=== PATIENT | female | born 1950 | race Caucasian/White ===

== ENCOUNTER → 2017-02-23 | Outpatient (CLI) | payer MEDICARE ==
[2017-02-23 15:11] LABS: CH 30.5; CHCM 31.7; HDW 2.07; HGB 14.3 gm/dL (11.4-16.0); MCH 30.7 pg (25.0-35.0); MCHC 31.8 g/dL (31.0-37.0); MCV 96.7 fL (80.0-100.0); Mean Platelet Volume 7.3; RBC 4.65 m/uL (3.80-5.40); RDW 12.4 % (11.5-15.5); WBC 5.6 k/uL (3.8-10.6)
[2017-02-23 15:20] LABS: ALT 22 U/L (9-52); AST 19 U/L (14-36); Alkaline Phosphatase 77 U/L (38-126); Anion Gap 12 mmol/L; Blood Urea Nitrogen 18 mg/dL (7-17); Calcium 9.7 mg/dL (8.4-10.2); Carbon Dioxide 27 mmol/L (22-30); Chloride 105 mmol/L (98-107); Cholesterol 208 mg/dL (<200); Creatine Kinase 47 U/L (30-135); Glucose 81 mg/dL (74-99); HDL Cholesterol 91 mg/dL (40-60); Non-African American GFR(MDRD) >60 (>60 ml/min/1.73 sqM); Potassium 4.4 mmol/L (3.5-5.1); Sodium 144 mmol/L (137-145); Total Bilirubin 0.7 mg/dL (0.2-1.3); Total Protein 7.5 g/dL (6.3-8.2); Triglycerides 92 mg/dL (<150)
== END | disposition home or self-care (01) ==
LOC: LABWHC1 13:54
PROVIDERS: ATTEND Family Medicine
DX: R07.9 Chest pain, unspecified (principal)
CPT/HCPCS: 36415; 80053; 80061; 82550; 84439; 84443; 84481; 85027

== ENCOUNTER → 2017-02-25 | Outpatient (CLI) | payer MEDICARE ==
--- NOTE | 2017-02-25 11:56 | EST ---
DATE OF SERVICE: 02/25/2017 AGE: 66Y SEX: F HT: 5'6" WT: 165 lbs. Protocol Daren: X Other: Cardiolite Stage: II Dur. of Exercise: 7 minutes *Heart Rate Blood Pressure *Rest: 62 Rest: 140/88 * *Max. Achieved: 142 Maximum BP: 124/97 85% PMHR: 132 100% PMHR: 155 *METS: 8.5 INDICATIONS: Chest pain. MEDICATIONS: Mrs. Martinez is a 66-year-old female with history of chest pains and smoking, being evaluated for cardiac status. Baseline EKG showed sinus rhythm with normal VA interval and QRS duration. Blood pressure at rest is 140/88, pulse rate of 62. Patient walked on the Daren protocol for about 7 minutes, achieving a maximum heart rate of 142 with blood pressure 124/97. EKGs taken during and after exercise did not reveal any changes to suggest ischemia. Occasional PVCs were noted. Mild J-point depression with upsloping ST segments are noted, which are not diagnostic for ischemia. FINAL IMPRESSION: 1. Negative stress test. 2. Patient did not experience any chest pain. 3. No arrhythmias were detected. 4. Report on the nuclear images to be given by the radiologist.
--- NOTE | 2017-02-25 12:38 | NM ---
EXAMINATION TYPE: NM stress cardiolite complete DATE OF EXAM: 02/25/2017 11:55 AM COMPARISON: NONE HISTORY: 66-year-old female with chest pain TECHNIQUE: After the intravenous administration of 10.49 mCi Tc 99m Sestamibi - Rest images obtained 45 minutes post injection. The patient exercised using a REAGAN protocol and 1 minute prior to peak exercise was injected with 26.1 mCi Tc 99m Sestamibi - Stress images obtained 13 minutes post inject ion. FINDINGS: Targeted heart rate was achieved during performance of the study. Review of stress and rest SPECT marge ges demonstrates no distinct perfusion abnormality. Gated analysis shows normal wall motion with an estimated left ventricular ejection fraction of 67 %. TID is calculated at 0.96, within normal limits . Polar maps are normal. During stress, PVCs were noted by the technologist. IMPRESSION: No scintigraphic evidence for reversible ischemia
== END | disposition home or self-care (01) ==
LOC: RADNMMAIN 09:14
PROVIDERS: ATTEND Family Medicine
DX: R07.9 Chest pain, unspecified (principal)
CPT/HCPCS: 93017; 78452; A9500

== ENCOUNTER → 2018-05-03 | Outpatient (CLI) | payer MEDICARE ==
--- NOTE | 2018-05-03 22:57 | MR ---
EXAMINATION TYPE: MR brain/cspine wo/w DATE OF EXAM: 05/03/2018 COMPARISON: None at this institute in PACS system HISTORY: Multiple sclerosis with imbalance and ataxia per order. Weakness into right leg. TECHNIQUE: Multiplanar, multisequence images of the cervical spine, brain, and brainstem are all performed witho ut and with IV contrast, utilizing 7.5 mL intravenous Gadavist gadolinium contrast is administered in travenously. Demyelinating disease protocol with additional Sagittal Flair sequence performed of the brain and brainstem and PD sagittal sequence of cervical spine all acquired. FINDINGS: BRAIN: T2 Lesions Present : Yes Approximate Number of Lesions: Approximately 15 scattered small lesions Locations Identified : Scattered lesions, no infratentorial involvement identified Size of Reference Lesion(s): 1. 0.5 cm x 0.3 cm x 0.6 cm on axial image 21 and sagittal image 10 posterior left frontal periventr icular lesion at level of han radiata Enhancing Lesion(s) Present: No T1 Hypointense Lesion(s) Present: Yes Change from Prior: N/A Diffusion weighted images demonstrate no evidence of a recent infarct or other diffusion abnormality. There is no worrisome extra-axial fluid collection. There is ventricular and sulcal prominence cons istent with mild diffuse age-related cerebral atrophy. Midline structures demonstrate normal morphology. The craniocervical junction appears within normal limits. Post contrast images demonstrate no abnormal enhancement. The dural venous sinuses appear pa tent. The visualized sinuses are clear and the globes are intact. IMPRESSION: Mild age-related diffuse cerebral atrophy and mild to borderline moderate nonspecific white matter changes. No enhancing lesions are evident. C-SPINE: FINDINGS: Coronal images show dextroconvex scoliotic curvature centered in the mid cervical spine Sag ittal images of the cervical spine show the craniocervical junction to appear within normal limits. The cervical and upper thoracic spinal cord is normal in course, caliber, and signal. The vertebra l body heights are normal. There is multilevel mild to moderate disc space narrowing with posterior d isc herniations effacing anterior thecal sac and nearly all levels with relative sparing of C2-C3 and C7-T1 levels on sagittal images. There is heterogeneity of bone marrow signal intensity with large h emangioma involving the T3 vertebra. No suspicious enhancement is identified. Axial images at C2-C3 level are felt within normal limits. Axial images at C3-C4 level show broad-based posterior disc protrusion effacing anterior thecal sac a nd causing moderate right-sided neural foraminal narrowing. There is mild left-sided neural foraminal narrowing seen. Axial images at C4-C5 level show posterior spur disc complex effacing anterior thecal sac up to ventr al surface of spinal cord and causing [id number] bilateral neural foraminal narrowing. Axial images at C5-C6 level show broad-based posterior disc protrusion effacing anterior thecal sac a nd causing moderate to advanced bilateral neural foraminal narrowing. Axial images at C6-C7 level show broad-based posterior disc protrusion effacing anterior thecal sac a nd causing advanced left and moderate to advanced right-sided neural foraminal narrowing. Axial images at C7-T1 level are felt within normal limits. IMPRESSION: No evidence of demyelinating disease involvement in the cervical spinal cord. Scoliosis a nd multilevel degenerative changes as detailed above.
== END | disposition home or self-care (01) ==
LOC: RADMRIMAIN 19:30
PROVIDERS: ATTEND Psychiatry & Neurology Neurology
DX: G31.1 Senile degeneration of brain, not elsewhere classified (principal); R90.82 White matter disease, unspecified; M47.812 Spondylosis without myelopathy or radiculopathy, cervical region; M41.9 Scoliosis, unspecified
CPT/HCPCS: 70553; 72156; A9581

== ENCOUNTER → 2018-06-15 | Outpatient (CLI) | payer MEDICARE ==
--- NOTE | 2018-06-15 16:27 | BD ---
EXAMINATION TYPE: Axial Bone Density DATE OF EXAM: 06/15/2018 COMPARISON: NONE CLINICAL HISTORY: Height: 65.5 Weight: 170 FRAX RISK QUESTIONS: Alcohol (3 or more units per day): no Family History (Parent hip fracture): no Glucocorticoids (More than 3mos): inhaler infrequently, as needed; seasonal asthma (Ex: prednisone, prednisolone, methylprednisolone, dexamethasone, and hydrocortisone). History of Fracture in Adulthood: toes Secondary Osteoporosis: 1. Type 1 Diabetes: no 2. Hyperthyroidism: unsure 3. Menopause before 45: no 4. Malnutrition: no 5. Chronic liver disease: no Rheumatoid Arthritis: no Current Tobacco Use: no RISK FACTORS HISTORY OF: Family History of Osteoporosis: no Active: yes Diet low in dairy products/other sources of calcium: no Postmenopausal woman: yes Take estrogen and/or progesterone medications: no Lost more than 2 inches in height since high school: no Frequent falls: no Poor Health: no Hyperparathyroidism: no Adrenal Insufficiency: no MEDICATIONS: Prednisone or other steroids: infrequently, as needed; seasonal allergy only Thyroid Medications: yes Which medication: Levothyroxine How Long: at least 15 years Osteoporosis Medications: no Additional Medications: Additional History: knee replacement EXAM MEASUREMENTS: Bone mineral densitometry was performed using the [employer]. Bone mineral density as measured about the Lumbar spine is: ----- L1-L4(G/cm2): 1.113 T Score Values are as follows: ----- L2: -1.4 ----- L3: -1.1 ----- L4: 0.0 ----- L1-L4: -0.6 Bone mineral density BASELINE Bone mineral density about the R hip (g/cm2): 0.834 Bone mineral density about the L hip (g/cm2): 0.836 T Score values are as follows: -----R Neck: -1.5 -----L Neck: -1.5 -----R Total: -1.0 -----L Total: -0.9 Bone mineral density BASELINE IMPRESSION: Osteopenia (T Score between -2.5 and -1). There is slightly increased risk of fracture and the patient may be considered for treatment. Re-Screen 2-5 years. NOTE: T-SCORE=SD OF THE YOUNG ADULT MEAN.
--- NOTE | 2018-06-16 14:19 | MM ---
Reason for exam: screening (asymptomatic). Last mammogram was performed 1 year and 1 month ago. History: Patient is postmenopausal and history of other cancer. Took estrogen for 7 months. Took progesterone for 7 months. Physical Findings: A clinical breast exam by your physician is recommended on an annual basis and results should be correlated with mammographic findings. MG 3D Screening Mammo W/Cad Bilateral CC and MLO view(s) were taken. Prior study comparison: May 16, 2017, mammogram, performed at [facility]. April 15, 2016, mammogram, performed at [facility]. The breast tissue is heterogeneously dense. This may lower the sensitivity of mammography. Focal asymmetry 7mm left CC view only (). This finding is changed when compared with previous exams. ASSESSMENT: Incomplete: need additional imaging evaluation, BI-RAD 0 RECOMMENDATION: Special view mammogram of the left breast. If lesion persists on supplemental views, image directed ultrasound is recommended. [facility] will attempt to contact patient to return for supplemental views and ultrasound if indicated.
== END | disposition home or self-care (01) ==
LOC: RADMAMWWP 12:28
PROVIDERS: ATTEND Family Medicine
DX: Z12.31 Encounter for screening mammogram for malignant neoplasm of breast (principal); M85.80 Other specified disorders of bone density and structure, unspecified site; Z78.0 Asymptomatic menopausal state
CPT/HCPCS: 77063; 77067; 77080

== ENCOUNTER → 2018-06-22 | Outpatient (CLI) | payer MEDICARE ==
--- NOTE | 2018-06-22 11:12 | MM ---
Reason for exam: additional evaluation requested from abnormal screening. Last mammogram was performed less than 1 month ago. History: Patient is postmenopausal and history of other cancer. Took estrogen for 7 months. Took progesterone for 7 months. Physical Findings: Nurse did not find any significant physical abnormalities on exam. MG 3D Work Up W/Cad LT Spot compression CC, spot compression MLO, and ML view(s) were taken of the left breast. Prior study comparison: June 15, 2018, bilateral MG 3d screening mammo w/cad. May 16, 2017, mammogram, performed at [facility]. The breast tissue is heterogeneously dense. This may lower the sensitivity of mammography. No distinct lesion persists on additional views. These results were verbally communicated with the patient and result sheet given to the patient on 06/22/18. ASSESSMENT: Negative, BI-RAD 1 RECOMMENDATION: Return to routine screening mammogram schedule for both breasts.
== END ==
LOC: RADMAMWWP 08:54
PROVIDERS: ATTEND Family Medicine
DX: R92.8 Other abnormal and inconclusive findings on diagnostic imaging of breast (principal)
CPT/HCPCS: 77065; G0279; 77061

== ENCOUNTER → 2019-04-19 | Outpatient (CLI) | payer MEDICARE ==
[2019-04-19 15:39] LABS: Protein, Total 6.2 g/dL (6.2-8.2)
[2019-04-19 22:17] LABS: Hemoglobin A1C 5.3 % (4.0-6.0)
[2019-04-20 12:18] LABS: Lyme IgG/IgM 0.06 Index
[2019-04-20 13:40] LABS: Albumin 3.94 g/dL (3.80-4.90)
[2019-04-20 15:21] LABS: ANA Pattern Homogeneous
== END | disposition home or self-care (01) ==
LOC: LABWHC1 11:26
PROVIDERS: ATTEND Psychiatry & Neurology Neurology
DX: G62.9 Polyneuropathy, unspecified (principal)
CPT/HCPCS: 36415; 82550; 82607; 82747; 83036; 84165; 84443; 85652; 86038; 86039; 86618

== ENCOUNTER → 2019-04-26 | Outpatient (CLI) | payer MEDICARE ==
--- NOTE | 2019-04-26 17:41 | MR ---
Thoracic spine MRI HISTORY: G 36, multiple sclerosis Multiplanar multisequence imaging through the thoracic spine No comparisons Thoracic vertebral bodies show preserved height and alignment. There is multilevel spondylosis with e ndplate discogenic marrow signal change. Multilevel loss of disc height signal at intervertebral leve ls compatible disc desiccation and degenerative disc disease. There is no significant foraminal encro achment or central canal stenosis. Foci of increased signal on T1 and T2-weighted sequences within mu ltiple vertebral bodies to exclude T3, T9, T8, T10 likely represent hemangiomas. Facet arthropathy ch anges are greatest at the lower thoracic level. Thoracic cord signal is maintained with the exception of some increased signal present within the T10-11 level on T2-weighted sequences, possibly proton d ensity sequences. There is underlying kyphosis. Ascending aorta is ectatic at approximately 3 cm. T10-11 there is a posterior disc herniation contacts the anterior thoracic cord. T9-10: There is a left lateral disc bulge causing anterolateral mass effect on the thecal sac. T8-9: Posterior broad-based disc bulge causes mild anterior mass effect on the thecal sac. T6-7: There is a right posterior paracentral disc herniation contacting the anterior thoracic cord an d the paracentral location. There may be a small sequestered fragment or bone spur extending posterio r to the T6 vertebral body. IMPRESSION: Degenerative disc disease, multilevel disc herniations greatest at T10-11. Suspect some a bnormal cord signal at this level. Facet arthropathy changes. Descending thoracic aortic ectasia. Add itional findings above.
== END | disposition home or self-care (01) ==
LOC: RADMRIMAIN 16:04
PROVIDERS: ATTEND Psychiatry & Neurology Neurology
DX: M51.24 Other intervertebral disc displacement, thoracic region (principal); M51.34 Other intervertebral disc degeneration, thoracic region; M46.94 Unspecified inflammatory spondylopathy, thoracic region; I77.810 Thoracic aortic ectasia
CPT/HCPCS: 72146

== ENCOUNTER → 2019-05-14 | Outpatient (CLI) | payer MEDICARE ==
--- NOTE | 2019-05-14 16:07 | MR ---
EXAMINATION TYPE: MR brain/cspine wo/w DATE OF EXAM: 05/14/2019 COMPARISON: MRI brain and cervical spine May 03, 2018 HISTORY: Multiple sclerosis / Right leg weakness TECHNIQUE: Multiplanar, multisequence images of the cervical spine, brain, and brainstem are all performed witho ut and with IV contrast, utilizing 7.5 mL intravenous Gadavist gadolinium contrast is administered in travenously. Demyelinating disease protocol with additional Sagittal Flair sequence performed of the brain and brainstem and PD sagittal sequences cervical spine all acquired. FINDINGS: BRAIN: T2 Lesions Present : Yes Approximate Number of Lesions: Approximately 15 scattered Locations Identified : Scattered small lesions redemonstrated Size of Reference Lesion(s): 1. There is stable 4 x 4 by 5 mm left posterior frontal coronal radiata lesion axial image 22 and sag ittal image 14 Enhancing Lesion(s) Present: No T1 Hypointense Lesion(s) Present: Yes Change from Prior: Stable Diffusion weighted images demonstrate no evidence of a recent infarct or other diffusion abnormality. There is diffuse ventricular and sulcal prominence redemonstrated Midline structures demonstrate no rmal morphology. The craniocervical junction appears within normal limits. Post contrast images dem onstrate no abnormal enhancement. The dural venous sinuses appear patent. The visualized sinuses are clear and the globes are intact. IMPRESSION: Stable mild diffuse cerebral atrophy and mild borderline moderate nonspecific white matte r changes. No new or enhancing lesions clearly seen. C-SPINE: FINDINGS: Coronal images redemonstrate levoconvex scoliotic curvature centered in the upper thoracic spine. Sagittal images of the cervical spine show the craniocervical junction to remain within normal limits. The cervical and upper thoracic spinal cord remains normal in course, caliber, and signal. Exaggerated cervical curvature redemonstrated on sagittal images. The vertebral body heights remain normal. There is persistent [id number] multilevel disc space narrowing with posterior spur dis c complexes efface the anterior thecal sac throughout the cervical spine extending into the thoracic spine. Hemangioma at T3 vertebral body level is redemonstrated. No suspicious enhancement is seen. Axial images at C2-C3 level remain within normal limits. Axial images at C3-C4 level redemonstrate broad-based posterior disc protrusion effacing anterior the leila sac and causing moderate right greater than left neural foraminal narrowing. No significant moody e from prior. Axial images at C4-C5 level show posterior spur disc complex effacing anterior thecal sac up to ventr al surface of spinal cord with uncovertebral facet arthropathy causing moderate bilateral neural fora savana narrowing. No significant change from prior. Axial images at C5-C6 level redemonstrate broad-based posterior disc protrusion effacing anterior the leila sac and causing moderate to advanced bilateral neural foraminal narrowing. No significant change from prior. Axial images at C6-C7 level show broad-based posterior disc protrusion effacing anterior thecal sac a nd causing moderate right greater than left neural foraminal narrowing. No significant change from pr ior. Axial images at C7-T1 level are felt within normal limits. IMPRESSION: No evidence of demyelinating disease involvement in the cervical spinal cord. Fairly stab le multilevel degenerative changes as detailed above.
== END | disposition home or self-care (01) ==
LOC: RADMRIMAIN 14:37
PROVIDERS: ATTEND Psychiatry & Neurology Neurology
DX: R53.1 Weakness (principal); G35 Multiple sclerosis
CPT/HCPCS: 70553; 72156; A9585

== ENCOUNTER → 2019-07-06 | Outpatient (CLI) | payer MEDICARE ==
--- NOTE | 2019-07-09 12:56 | MM ---
Reason for exam: screening (asymptomatic). Last mammogram was performed 1 year ago. History: Patient is postmenopausal and history of other cancer. Took estrogen for 7 months. Took progesterone for 7 months. Physical Findings: A clinical breast exam by your physician is recommended on an annual basis and results should be correlated with mammographic findings. MG 3D Screening Mammo W/Cad Bilateral CC and MLO view(s) were taken. Prior study comparison: June 22, 2018, left breast MG 3d work up w/cad LT. June 15, 2018, bilateral MG 3d screening mammo w/cad. The breast tissue is heterogeneously dense. This may lower the sensitivity of mammography. No suspicious abnormality. No significant changes when compared with prior studies. ASSESSMENT: Negative, BI-RAD 1 RECOMMENDATION: Routine screening mammogram of both breasts in 1 year.
== END | disposition home or self-care (01) ==
LOC: RADMAMWWP 14:30
PROVIDERS: ATTEND Family Medicine
DX: Z12.31 Encounter for screening mammogram for malignant neoplasm of breast (principal)
CPT/HCPCS: 77063; 77067

== ENCOUNTER → 2019-08-09 | Outpatient (CLI) | payer MEDICARE ==
--- NOTE | 2019-08-12 14:46 | MR ---
EXAMINATION TYPE: MR lumbar spine wo con DATE OF EXAM: 08/09/2019 COMPARISON: MR thoracic spine 04/26/2019 HISTORY: 68-year-old female with pain and spondylosis TECHNIQUE: Multiplanar, multisequence images of the lumbar spine were acquired. FINDINGS: Vertebral body heights are preserved. There is grade 1, nearly grade 2 anterolisthesis at L4-L5 secondary to severe hypertrophic facet arth ropathy. Mild degenerative disc disease throughout weight desiccated and mildly narrowed discs with bulging in multiple levels. Tiny posterior annular fissures at L3-L4 and L4-L5. Ligamentum flavum thickening lower lumbar spine. Conus medullaris is normal. No suspicious bone marrow replacement of their is mild heterogeneous marrow signal throughout. Posterior disc protrusion at T10-T11 abuts the ventral cord. There is some corresponding cortical vol ume loss at this level and some subtle increased signal is seen on MRI 04/26/2019. Mild overall narrow ing of the spinal canal. At T12-L1, L2 disc with minimal inferior foraminal narrowing on the right. No spinal canal stenosis. At L1-L2, no canal or foraminal stenosis. At L2-L3, minimal bulging disc. Changes result in minimal inferior foraminal narrowing on the right. No spinal canal stenosis. At L3-L4, minimal bulging disc with tiny posterior annular fissure. Ligamentum flavum thickening with hypertrophic facet arthropathy. Minimal inferior foraminal narrowing on both sides. There is circumf erential attenuation of the thecal sac without significant spinal canal stenosis. At L4-L5, severe hypertrophic facet arthropathy with ligamentum flavum thickening and grade 1, nearly grade 2 anterolisthesis with bulging disc. Changes result in a focal moderate to severe spinal canal stenosis with mild right greater than left neuroforaminal stenosis. At L5-S1, mild bulging disc with hypertrophic facet arthropathy. Disc material may abut the traversin g left S1 nerve root at this level. Changes also result in mild left neural foraminal stenosis. No prevertebral or paravertebral soft tissue abnormality. IMPRESSION: 1. Sqje-hr-klsczmoy multilevel degenerative disc disease. Severe hypertrophic facet arthropathy lower lumbar spine with ligamentum flavum thickening and grade 1, nearly grade 2 anterolisthesis at L4-L5. 2. Changes at L4-L5 result in a focal moderate to severe spinal canal stenosis with mild right greate r than left neuroforaminal stenosis. 3. Bulging disc at L5-S1 may abut the traversing left S1 nerve root. Mild left neuroforaminal stenosi s. 4. Posterior disc protrusion at T10-T11 as seen on MRI of the thoracic spine on 04/26/2019. There is m ild narrowing of the spinal canal at this level with disc abutting the ventral cord and the appearanc e of some chronic myelomalacia here.
== END | disposition home or self-care (01) ==
LOC: RADMRIMAIN 10:50
DX: M48.061 Spinal stenosis, lumbar region without neurogenic claudication (principal); M48.07 Spinal stenosis, lumbosacral region; M43.16 Spondylolisthesis, lumbar region; M51.36 Other intervertebral disc degeneration, lumbar region; M46.96 Unspecified inflammatory spondylopathy, lumbar region; G95.89 Other specified diseases of spinal cord
CPT/HCPCS: 72148

== ENCOUNTER 2020-05-02 13:20 | Emergency (ER) | payer MEDICARE ==
--- NOTE | 2020-05-02 14:31 | XR ---
EXAMINATION TYPE: XR ankle complete RT DATE OF EXAM: 05/02/2020 COMPARISON: NONE HISTORY: Pain FINDINGS: Three views of the ankle demonstrate the ankle mortise to be intact and symmetric. There is diffuse s oft tissue edema laterally with a mildly displaced fracture of the distal fibula. Large plantar calca bonita spur. Remaining osseous structures intact. IMPRESSION: 1. Displaced fibular distal fracture with extensive soft tissue edema.
--- NOTE | 2020-05-02 14:32 | XR ---
EXAMINATION TYPE: XR foot complete RT DATE OF EXAM: 05/02/2020 COMPARISON: NONE HISTORY: Pain TECHNIQUE: Three views are submitted. FINDINGS: The osseous structures are intact. There is no acute fracture or dislocation. Severe arthropathy o f the first MTP joint. Extensive soft tissue edema seen along the lateral margin of the ankle. Planta r calcaneal spur noted. Findings compatible with a mildly displaced fracture of the distal fibula. Re maining osseous structures intact. IMPRESSION: 1. Extensive soft tissue edema laterally with a mildly displaced fracture of the distal fibula. 2. Arthropathy of the first MTP joint.
[2020-05-02] MEDS ORDERED: ACET/COD 300 MG/30 MG STARTER PACK 6 TAB BTL PO STA (14:41)
--- NOTE | 2020-05-02 14:47 | ED ---
Lower Extremity Injury HPI - General Chief Complaint: Extremity Injury, Lower Stated Complaint: Sprain/broke rt ankle Time Seen by Provider: 05/02/20 14:07 Source: patient, RN notes reviewed, old records reviewed Mode of arrival: wheelchair Limitations: no limitations - History of Present Illness Initial Comments: 69 year old female presents today for R ankle pain and swelling after twisting it while golfing today. She reports no other injury. Denies head injury. Patient reports pain on lateral malleolus. - Related Data Previous Rx's Medication Instructions Recorded Acetaminophen with Codeine 1 tab PO Q6H PRN 3 Days #12 tab 05/02/20 [Tylenol w/codeine #3] Acetaminophen with Codeine 1 tab PO Q6H PRN 3 Days #12 tab 05/02/20 [Tylenol w/codeine #3] Allergies Allergy/AdvReac Type Severity Reaction Status Date / Time No Known Allergies Allergy Verified 05/02/20 14:00 Review of Systems ROS Statement: Those systems with pertinent positive or pertinent negative responses have been documented in the HPI. ROS Other: All systems not noted in ROS Statement are negative. Past Medical History Additional Past Medical History / Comment(s): spinal stenosis, possible MS History of Any Multi-Drug Resistant Organisms: None Reported Past Surgical History: Joint Replacement Additional Past Surgical History / Comment(s): right knee replacement Past Psychological History: No Psychological Hx Reported Smoking Status: Former smoker Past Alcohol Use History: Daily Past Drug Use History: None Reported General Exam - General Exam Comments Initial Comments: 69 year old female, no distress. Limitations: no limitations General appearance: alert, in no apparent distress Head exam: Present: atraumatic, normocephalic, normal inspection Eye exam: Present: normal appearance, PERRL, EOMI. Absent: scleral icterus, c onjunctival injection, periorbital swelling ENT exam: Present: normal exam, mucous membranes moist Neck exam: Present: normal inspection. Absent: tenderness, meningismus, lymphadenopathy Respiratory exam: Present: normal lung sounds bilaterally. Absent: respiratory distress, wheezes, rales, rhonchi, stridor Cardiovascular Exam: Present: regular rate, normal rhythm, normal heart sounds. Absent: systolic murmur, diastolic murmur, rubs, gallop, clicks GI/Abdominal exam: Present: soft, normal bowel sounds. Absent: distended, tenderness, guarding, rebound, rigid Right Lower Leg exam: Present: normal inspection, full ROM Ankle exam: Present: tenderness, swelling (lateral malleolus). Absent: normal inspection, full ROM Foot/Toe exam: Present: normal inspection, full ROM Neurovascular tendon exam: Present: no vascular compromise Back exam: Present: normal inspection Neurological exam: Present: alert, oriented X3, CN II-XII intact Psychiatric exam: Present: normal affect, normal mood Skin exam: Present: warm, dry, intact, normal color. Absent: rash Course Vital Signs 05/02/20 05/02/20 13:57 15:40 Temperature 98.9 F 98.0 F Pulse Rate 55 L 78 Respiratory 18 17 Rate Blood Pressure 148/82 138/74 O2 Sat by Pulse 99 98 Oximetry Procedures - Orthopedic Splinting/Casting Injury #1 Side: right Lower Extremity Injury Location: ankle Lower Extremity Immobilizer: posterior splint, stirrup splint, Marcelino wrap, synthetic pre-padded splint Other Orthopedic Equipment: walker Medical Decision Making - Medical Decision Making 69 year old female with R ankle pain and swelling after rolling it during golf today. Pt has tenderness and swelling on lateral malleolus. PAtient xray shows evidence of displaced fibular fracture. Patient placed in ankle stirrup and posterior splint and advised follow up with ortho this week. - Radiology Data Radiology results: report reviewed Excess excessive soft tissue edema laterally with a mildly displaced fracture of the distal fibula. Arthropathy within the first MTP joint. Displaced fibular distal fracture with extensive soft tissue edema and ankle x-ray. Disposition Clinical Impression: Fracture of distal fibula Disposition: HOME SELF-CARE Condition: Good Instructions (If sedation given, give patient instructions): Leg Fracture (ED) Additional Instructions: Patient is to rest, ice and elevate the leg. Patient needs to remain in splint until seen by orthopedic. Patient is to use crutches for ambulation. Prescriptions: Acetaminophen with Codeine [Tylenol w/codeine #3] 1 tab PO Q6H PRN 3 Days #12 tab PRN Reason: Pain Acetaminophen with Codeine [Tylenol w/codeine #3] 1 tab PO Q6H PRN 3 Days #12 tab PRN Reason: Pain Is patient prescribed a controlled substance at d/c from ED?: No Referrals: Ramírez Pitts MD [Primary Care Provider] - 1-2 days Alexander Bosch DO [Medical Doctor] - 1-2 days Time of Disposition: 14:42
[2020-05-02 15:42] VITALS: BP 138/74; PULSE 78; RESP 17; TEMP 98
== END 2020-05-02 15:42 | disposition home or self-care (01) ==
LOC: EC 13:20
DX: S82.831A Other fracture of upper and lower end of right fibula, initial encounter for closed fracture (principal); Z96.651 Presence of right artificial knee joint; Z87.891 Personal history of nicotine dependence; X50.1XXA Overexertion from prolonged static or awkward postures, initial encounter; Y93.53 Activity, golf; Y92.89 Other specified places as the place of occurrence of the external cause
CPT/HCPCS: 29515; 99284

== ENCOUNTER → 2020-07-07 | Outpatient (CLI) | payer MEDICARE ==
--- NOTE | 2020-07-07 14:17 | BD ---
EXAMINATION TYPE: Axial Bone Density DATE OF EXAM: 07/07/2020 COMPARISON: 06.15.2018 CLINICAL HISTORY: 69 YR OLD FEMALE.....ICD-10 CODE: V49.81 , Z78.0 MENOPAUSAL SYMPTOME Height: 64.5 Weight: 177 FRAX RISK QUESTIONS: Glucocorticoids (More than 3mos): YES (Ex: prednisone, prednisolone, methylprednisolone, dexamethasone, and hydrocortisone). History of Fracture in Adulthood: YES RISK FACTORS HISTORY OF: RT ANKLE APRIL 2020, AND FINGERS AND TOES ADULT Postmenopausal woman: YES, AT AGE 50 Lost more than 2 inches in height since high school: YES Hyperparathyroidism: NO Adrenal Insufficiency: NO MEDICATIONS: Prednisone or other steroids: SEASONAL ASTHMA, YRLY Thyroid Medications: YES SYNTHROID FOR ABOUT 15+ yrs.. Additional Medications: BP MEDS, PAIN MEDS, NSAIDS Additional History: SPINAL STENOSIS EXAM MEASUREMENTS: Bone mineral densitometry was performed using the [employer] System. Bone mineral density as measured about the Lumbar spine is: ----- L1-L4(G/cm2): 1.099 T Score Values are as follows: ----- L1: 0.0 ----- L2: -2.0 ----- L3: -0.7 ----- L4: 0.3 ----- L1-L4: -0.7 Bone mineral density has: Decreased -0.9% since study of: 06.15.2018 Bone mineral density about the R hip (g/cm2): 0.866 Bone mineral density about the L hip (g/cm2): 0.910 T Score values are as follows: -----R Neck: -1.8 -----L Neck: -1.9 -----R Total: -1.1 -----L Total: -0.8 Bone mineral density has: Increased 0.6% since study of: 06.15.2018 FRAX%s: THERE IS A 26.6% CHANCE FOR A MAJOR OSTEOPOROTIC FX AND A 5.2% FOR HIP......PROBABILITY FOR FX IN 10 YRS TIME IMPRESSION: Osteopenia (T Score between -2.5 and -1). There is slightly increased risk of fracture and the patient may be considered for treatment. Re-Screen 2-5 years. NOTE: T-SCORE=SD OF THE YOUNG ADULT MEAN.
--- NOTE | 2020-07-08 08:37 | MM ---
Reason for exam: screening (asymptomatic). Last mammogram was performed 1 year ago. History: Patient is postmenopausal and history of other cancer. Took estrogen for 7 months. Took progesterone for 7 months. Physical Findings: A clinical breast exam by your physician is recommended on an annual basis and results should be correlated with mammographic findings. MG 3D Screening Mammo W/Cad Bilateral CC and MLO view(s) were taken. Prior study comparison: July 06, 2019, bilateral MG 3d screening mammo w/cad. June 22, 2018, left breast MG 3d work up w/cad LT. The breast tissue is heterogeneously dense. This may lower the sensitivity of mammography. There is chronic nodularity in the right breast. No significant changes when compared with prior studies. ASSESSMENT: Benign, BI-RAD 2 RECOMMENDATION: Routine screening mammogram of both breasts in 1 year.
== END | disposition home or self-care (01) ==
LOC: RADMAMWWP 09:20
PROVIDERS: ATTEND Family Medicine
DX: Z12.31 Encounter for screening mammogram for malignant neoplasm of breast (principal); M85.80 Other specified disorders of bone density and structure, unspecified site; Z78.0 Asymptomatic menopausal state
CPT/HCPCS: 77063; 77067; 77080

== ENCOUNTER → 2021-03-28 | Outpatient (CLI) | payer MEDICARE ==
--- NOTE | 2021-03-28 11:36 | MR ---
EXAMINATION TYPE: MR brain/cspine wo/w DATE OF EXAM: 03/28/2021 COMPARISON: Prior MRI brain and cervical spine 2019 and 2018 HISTORY: Prior on synapse, hx of MS, weakness in right leg TECHNIQUE: Multiplanar, multisequence images of the brain and brainstem along with cervical spine are all perfor med without and with IV contrast, utilizing 8ml mL intravenous Gadavist . Demyelinating disease adija col. BRAIN: T2 Lesions Present : Yes Approximate Number of Lesions: Approximately 15 -20 scattered Locations Identified : Scattered Size of Reference Lesion(s): 1. There is stable 4 x 4 by 6 mm left posterior frontal periventricular coronal radiata lesion axial image 21 and sagittal image 13 current study Enhancing Lesion(s) Present: No T1 Hypointense Lesion(s) Present: Yes Change from Prior: Stable Diffusion weighted images demonstrate no evidence of a recent infarct or other diffusion abnormality. There is mild diffuse ventricular and sulcal prominence redemonstrated redemonstrated. Midline structures demonstrate normal morphology. The craniocervical junction appears within normal limits. Post contrast images demonstrate no abnormal enhancement. The dural venous sinuses appear pa tent. The visualized sinuses are clear and the globes are intact. IMPRESSION: Stable mild diffuse cerebral atrophy and mild to moderate nonspecific white matter change s. No new or enhancing lesions clearly seen. No significant change from prior. C-SPINE: FINDINGS: Coronal images redemonstrate levoconvex scoliotic curvature centered in the upper thoracic spine. Sagittal images of the cervical spine show the craniocervical junction to remain within normal limits. The cervical and upper thoracic spinal cord remains normal in caliber and signal. Exaggerat ed cervical curvature redemonstrated on sagittal images. The vertebral body heights remain normal. There is persistent [id number]-[id number] multilevel disc space narrowing with posterior spur disc complex es efface the anterior thecal sac throughout the cervical spine extending into the thoracic spine. He mangioma at T3 vertebral body level is redemonstrated. No suspicious enhancement is seen. Axial images at C2-C3 level remain within normal limits. Axial images at C3-C4 level redemonstrate broad-based posterior disc protrusion effacing anterior the leila sac and causing moderate right greater than left neural foraminal narrowing. No significant moody e from prior. Axial images at C4-C5 level show posterior spur disc complex effacing anterior thecal sac up to ventr al surface of spinal cord with uncovertebral facet arthropathy causing moderate bilateral neural fora savana narrowing. No significant change from prior. Axial images at C5-C6 level redemonstrate broad-based posterior disc protrusion effacing anterior the leila sac and causing moderate to advanced bilateral neural foraminal narrowing. No significant change from prior. Axial images at C6-C7 level show broad-based posterior disc protrusion effacing anterior thecal sac a nd ventral surface of the spinal cord and causing moderate to advanced bilateral neural foraminal patrizia rowing. No significant change from prior. Axial images at C7-T1 level remain within normal limits. IMPRESSION: No evidence of demyelinating disease involvement in the cervical spinal cord. Fairly stab le multilevel degenerative changes as detailed above
== END | disposition home or self-care (01) ==
LOC: RADMRIMAIN 10:10
PROVIDERS: ATTEND Psychiatry & Neurology Neurology
DX: G31.9 Degenerative disease of nervous system, unspecified (principal); R90.82 White matter disease, unspecified; M47.812 Spondylosis without myelopathy or radiculopathy, cervical region
CPT/HCPCS: 70553; 72156; A9585

== ENCOUNTER → 2021-03-31 | Outpatient (CLI) | payer MEDICARE ==
--- NOTE | 2021-03-31 13:20 | MR ---
EXAMINATION TYPE: MR thoracic spine wo/w con DATE OF EXAM: 03/31/2021 COMPARISON: 04/26/2019 HISTORY: Leg weakness, MS CONTRAST: Standard multiplanar, multisequence MRI thoracic spine departmental protocol utilizing 7.5 mL intrave nous Gadavist gadolinium contrast. FINDINGS: Vertebral body heights are preserved. Multiple hemangiomas are noted. Multilevel disc desiccation is seen. At T6-7, there is a disc osteophyte complex with mild central canal stenosis, slightly worsened since the prior exam. At T9-10, there is a disc bulge with mass effect upon the spinal cord and edema within the spinal cor d at this level, similar to the prior exam No definite abnormal enhancement. The paravertebral soft tissues are unremarkable. IMPRESSION: At T6-7, there is a disc osteophyte complex with mild central canal stenosis, slightly worsened since the prior exam. At T9-10, there is a disc bulge with mass effect upon the spinal cord and edema within the spinal cor d at this level, similar to the prior exam No definite abnormal enhancement.
== END | disposition home or self-care (01) ==
LOC: RADMRIMAIN 11:39
PROVIDERS: ATTEND Psychiatry & Neurology Neurology
DX: M25.78 Osteophyte, vertebrae (principal); M48.04 Spinal stenosis, thoracic region; M51.24 Other intervertebral disc displacement, thoracic region
CPT/HCPCS: 72157; A9585

== ENCOUNTER → 2021-08-06 | Outpatient (CLI) | payer MEDICARE ==
--- NOTE | 2021-08-10 09:57 | MM ---
Reason for exam: screening (asymptomatic). Last mammogram was performed 1 year and 1 month ago. History: Patient is postmenopausal and history of other cancer. Took hormonal contraceptives for 10 years. Took estrogen for 7 months. Took progesterone for 7 months. Physical Findings: A clinical breast exam by your physician is recommended on an annual basis and results should be correlated with mammographic findings. MG 3D Screening Mammo W/Cad Bilateral CC and MLO view(s) were taken. Prior study comparison: July 07, 2020, bilateral MG 3d screening mammo w/cad. July 06, 2019, bilateral MG 3d screening mammo w/cad. The breast tissue is heterogeneously dense. This may lower the sensitivity of mammography. There is chronic nodularity in the right breast. No significant changes when compared with prior studies. ASSESSMENT: Benign, BI-RAD 2 RECOMMENDATION: Routine screening mammogram of both breasts in 1 year.
== END | disposition home or self-care (01) ==
LOC: RADMAMWWP 15:38
PROVIDERS: ATTEND Family Medicine
DX: Z12.31 Encounter for screening mammogram for malignant neoplasm of breast (principal); Z85.89 Personal history of malignant neoplasm of other organs and systems
CPT/HCPCS: 77063; 77067

== ENCOUNTER 2021-08-11 09:11 | Day surgery (SDC) | payer MEDICARE ==
[2021-08-07 17:00] VITALS: BMI 27.4
[2021-08-11 09:44] VITALS: TEMP 97.2
[2021-08-11] MEDS: LACTATED RINGERS 1,000 ML IV SCH ×2 (09:54→10:28)
[2021-08-11] MEDS ORDERED: LIDOCAINE 1% (10MG/ML) FOR IV START INTRADERMA ONE (09:55)
[2021-08-11] MEDS ORDERED: PROPOFOL 10 MG/ML 20 ML VIAL IV ONE (10:30)
--- NOTE | 2021-08-11 10:32 | P.GSHP ---
History of Present Illness H&P Date: 08/11/21 Chief Complaint: Colon cancer screening 70-year-old female here today for colonoscopy. Patient has a history of chronic constipation without new complaints. No family history of colon cancer. Last colonoscopy 7 years ago or so. Thinks she may have had polyps before. Past Medical History Past Medical History: Asthma Additional Past Medical History / Comment(s): spinal stenosis, MS-trigeminal nerve pain,balance is off,seasonal asthma,eleanor glaucoma History of Any Multi-Drug Resistant Organisms: None Reported Past Surgical History: Joint Replacement Additional Past Surgical History / Comment(s): right knee replacement Past Anesthesia/Blood Transfusion Reactions: Postoperative Nausea & Vomiting (PONV) Additional Past Anesthesia/Blood Transfusion Reaction / Comment(s): PONV with pain injections to back Smoking Status: Former smoker - Past Family History Mother Family Medical History: Cancer Additional Family Medical History / Comment(s): lung CA Medications and Allergies Home Medications Medication Instructions Recorded Confirmed Type Ibuprofen 400 mg PO Q8H PRN 08/07/21 08/11/21 History Latanoprost/Pf [Latanoprost 0.005% 1 drop BOTH EYES HS 08/07/21 08/11/21 History Eye Drop] Levothyroxine Sodium [Synthroid] 50 mcg PO QAM 08/07/21 08/11/21 History Metoprolol Succinate (ER) [Toprol 50 mg PO QAM 08/07/21 08/11/21 History Xl] OXcarbazepine [Trileptal] 150 mg PO BID PRN 08/07/21 08/11/21 History Prevagen Supplement 1 dose PO DAILY 08/07/21 08/11/21 History Zolpidem Tartrate [Ambien] 5 mg PO HS PRN 08/07/21 08/11/21 History Allergies Allergy/AdvReac Type Severity Reaction Status Date / Time No Known Allergies Allergy Verified 08/11/21 09:36 Surgical - Exam Vital Signs Temp Pulse Resp BP Pulse Ox 97.2 F L 59 L 16 151/72 99 08/11/21 09:37 08/11/21 09:37 08/11/21 09:37 08/11/21 09:37 08/11/21 09:37 Physical exam: General: Well-developed, well-nourished HEENT: Normocephalic, sclerae nonicteric Abdomen: Nontender, nondistended Extremities: No edema Neuro: Alert and oriented Assessment and Plan (1) Colon cancer screening Narrative/Plan: Will proceed with colonoscopy Current Visit: Yes Status: Acute Code(s): Z12.11 - ENCOUNTER FOR SCREENING FOR MALIGNANT NEOPLASM OF COLON SNOMED Code(s): 085032812
--- NOTE | 2021-08-11 10:52 | P.PCN ---
Date of Procedure: 08/11/21 Procedure(s) Performed: PREOPERATIVE DIAGNOSIS: Colon cancer screening POSTOPERATIVE DIAGNOSIS: Sigmoid colon polyp 25 cm, diverticulosis PROCEDURE: Colonoscopy with snare polypectomy ANESTHESIA: MAC SURGEON: Sha Alejandro M.D. SPECIMENS: Polyp ENDOSCOPIC PROCEDURE: The patient was placed on the endoscopy table in the left decubitus position. The Olympus colonoscope was inserted into the anus and passed under direct visualization to the base of the cecum. The appendiceal orifice was visualized. From that point the scope was slowly withdrawn inspecting all surfaces carefully. There were no neoplastic inflammatory or polypoid lesions throughout the cecum, ascending, transverse, or descending co kathrin. In the sigmoid colon at 25 cm there was a pedunculated polyp removed using the snare with cautery technique. This measured 1.5 cm in size. This was removed as one piece. The remainder of the sigmoid and rectum appeared normal. There was mild scattered diverticulosis. Digital rectal examination was normal. The patient was taken to the recovery room in stable condition per anesthesia guidelines. RECOMMENDATIONS: Await biopsy results. Likely will require short-term follow- up.
[2021-08-11 11:14] VITALS: BP 138/70; PULSE 58; RESP 19
== END 2021-08-11 11:28 | disposition home or self-care (01) ==
LOC: ORWHC2ENDO 09:11
PROVIDERS: ATTEND Surgery
DX: Z12.11 Encounter for screening for malignant neoplasm of colon (principal); K57.30 Diverticulosis of large intestine without perforation or abscess without bleeding; Z79.899 Other long term (current) drug therapy; Z80.1 Family history of malignant neoplasm of trachea, bronchus and lung; Z87.891 Personal history of nicotine dependence
CPT/HCPCS: 45385; 88305; J2704

== ENCOUNTER → 2022-03-31 | Outpatient (CLI) | payer MEDICARE ==
--- NOTE | 2022-04-01 03:56 | MR ---
EXAMINATION TYPE: MR brain wo/w con DATE OF EXAM: 03/31/2022 COMPARISON: 03/28/2021 HISTORY: Worsened balance, MS. CONTRAST: Standard multiplanar, multisequence MRI departmental protocol images were obtained without contrast a nd with 7.5 mL intravenous Gadavist gadolinium contrast. There is cerebral cortical atrophy. There is no mass effect or midline shift. There are scattered whi te matter high signal foci in the periventricular white matter. These are more noticeable in the reyes etal lobes and measure up to 6 mm. Total number is less than 20. Most of the lesions are less than 3 mm. The brainstem is intact. Cerebellum is intact. Diffusion images show no sign of an acute infarct. Contrast images show no pathologic enhancement. There is normal enhancement of the venous sinuses. Corpus callosum is intact. Sella turcica appears normal. No evidence of orbital mass. IMPRESSION: White matter nonenhancing lesions that could relate to demyelinating disease and not significantly di fferent than old exam. No evidence of any significant new lesion. Also consider microvascular ischemi a.
== END | disposition home or self-care (01) ==
LOC: RADMRIMAIN 16:31
PROVIDERS: ATTEND Psychiatry & Neurology Neurology
DX: G35 Multiple sclerosis (principal); G31.9 Degenerative disease of nervous system, unspecified; I67.82 Cerebral ischemia
CPT/HCPCS: 70553; A9585

== ENCOUNTER → 2022-04-17 | Outpatient (CLI) | payer MEDICARE ==
--- NOTE | 2022-04-18 03:40 | MR ---
EXAMINATION TYPE: MR cspine/tspine wo/w con DATE OF EXAM: 04/17/2022 COMPARISON: 03/28/2021 and 03/31/2021 HISTORY: MS, Spinal stenosis, back pain CONTRAST: Standard multiplanar, multisequence MRI departmental protocol images were obtained without contrast a nd with 7.5 mL intravenous Gadavist gadolinium contrast. Cervical spine. Cervical vertebra have normal alignment. There is degenerative disc space narrowing throughout the ce rvical spine with spurring of the endplates. There is developmentally smaller spinal canal and there is some smiles spinal stenosis of 6 mm at the C4-5 level. Canal measures 8 mm at C3-4. Canal measures 6.5 mm at C5-6. Cervical cord shows no edema. No cervical spine compression fracture. The brainstem appears intact. Contrast images show no pathologic enhancement. IMPRESSION: Multilevel cervical spondylotic changes and mild spinal stenosis as above. No fracture. No evidence o f demyelinating disease. No significant change compared to old exam. Thoracic spine. The thoracic vertebra show slight increased kyphotic curvature. No significant compression deformity. Thoracic spinal cord has normal size. No spinal stenosis. No evidence of any significant thoracic po sterior disc herniation. There is no thoracic paraspinal mass. Contrast images show no pathologic enh ancement. There is reticular shaped area of increased signal in the T3 vertebral body consistent with some fatt y marrow replacement. At T10 level there is decreased signal in the vertebral body on T1 and T2 image s. No pathologic enhancement. This is seen extending into the right-sided pedicle of T10. IMPRESSION: No evidence of demyelinating disease of the thoracic spinal cord. No spinal stenosis. No acute fractu re. On previous exam of 03/31/2021 there is increased signal in the spinal cord at T10-T11 level and this is not demonstrated on today's exam Abnormal decreased signal in the T10 vertebral body extending into the right-sided pedicle without en hancement. This is a change compared to old exam. The appearance is nonspecific. Metastatic disease i s possible.
== END | disposition home or self-care (01) ==
LOC: RADMRIMAIN 13:27
PROVIDERS: ATTEND Psychiatry & Neurology Neurology
DX: G35 Multiple sclerosis (principal); M47.812 Spondylosis without myelopathy or radiculopathy, cervical region; M99.71 Connective tissue and disc stenosis of intervertebral foramina of cervical region
CPT/HCPCS: 72156; 72157; A9585

== ENCOUNTER → 2022-07-09 | Outpatient (CLI) | payer MEDICARE ==
--- NOTE | 2022-07-09 13:34 | BD ---
EXAMINATION TYPE: Axial Bone Density DATE OF EXAM: 07/09/2022 COMPARISON: 06.15.2018 CLINICAL HISTORY: 71 years year old Female. ICD-10 CODE: M89.9 DISORDER OF BONE Height: 64.5 IN Weight: 165 FRAX RISK QUESTIONS: History of Fracture in Adulthood: YES Secondary Osteoporosis: RISK FACTORS HISTORY OF: Active: YES Postmenopausal woman: YES MEDICATIONS: Thyroid Medications: Which medication: YES LEVOTHYROXINE How Lon YEARS Additional Medications: BP MED, GLAUCOMA MED Additional History: RIGHT ANKLE FX EXAM MEASUREMENTS: Bone mineral densitometry was performed using the [email or web address] System. Bone mineral density as measured about the Lumbar spine is: ----- L1-L4(G/cm2): 1.020 T Score Values are as follows: ----- L1: -0.1 ----- L2: -1.5 ----- L3: -2.3 ----- L4: -1.5 ----- L1-L4: -1.3 Bone mineral density has: Decreased -9.9% since study of: 06.15.2018 Bone mineral density about the R hip (g/cm2): 0.826 Bone mineral density about the L hip (g/cm2): 0.845 T Score values are as follows: -----R Neck: -1.8 -----L Neck: -1.7 -----R Total: -1.4 -----L Total: -1.3 Bone mineral density has: Decreased -5.4% since study of: 06.15.2018 FRAX%s: The graph provided illustrates a 17.7% chance for a major osteoporotic fx and a 3.2% chance f or the hips probability for fx in 10 years time. IMPRESSION: Osteopenia (T Score between -2.5 and -1). There is slightly increased risk of fracture and the patient may be considered for treatment. Re-Screen 2-5 years. NOTE: T-SCORE=SD OF THE YOUNG ADULT MEAN.
== END | disposition home or self-care (01) ==
LOC: RADBDWWP 12:19
PROVIDERS: ATTEND Family Medicine
DX: M85.89 Other specified disorders of bone density and structure, multiple sites (principal)
CPT/HCPCS: 77080

== ENCOUNTER 2023-03-08 09:16 | Day surgery (SDC) | payer MEDICARE ==
[2023-03-02 17:23] VITALS: BMI 26.6
[~2023-03-08 09:16] MED LIST: LACTATED RINGERS 1,000 ML IV SCH; LIDOCAINE 1% (10MG/ML) FOR IV START INTRADERMA PRN
[2023-03-08 10:02] VITALS: TEMP 97.6
--- NOTE | 2023-03-08 10:38 | P.GSHP ---
History of Present Illness H&P Date: 03/08/23 Chief Complaint: Colon polyp 72-year-old female here today for colonoscopy. Last colonoscopy August 2021. 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 1 year follow-up was advised. No new complaints. Past Medical History Past Medical History: Hypertension, Thyroid Disorder Additional Past Medical History / Comment(s): spinal stenosis, MS History of Any Multi-Drug Resistant Organisms: None Reported Past Surgical History: Joint Replacement Additional Past Surgical History / Comment(s): right knee replacement, COLONOSCOPY, D & C, EPIDURAL BACK INJECTIONS Past Anesthesia/Blood Transfusion Reactions: Postoperative Nausea & Vomiting (PONV) Smoking Status: Former smoker - Past Family History Mother Family Medical History: Cancer Medications and Allergies Home Medications Medication Instructions Recorded Confirmed Type Ibuprofen 400 mg PO Q8H PRN 08/07/21 03/08/23 History Latanoprost/Pf [Latanoprost 0.005% 1 drop BOTH EYES HS 08/07/21 03/08/23 History Eye Drop] Levothyroxine Sodium [Synthroid] 50 mcg PO QAM 08/07/21 03/08/23 History Metoprolol Succinate (ER) [Toprol 50 mg PO QAM 08/07/21 03/08/23 History Xl] Prevagen Supplement 1 dose PO DAILY 08/07/21 03/08/23 History Zolpidem Tartrate [Ambien] 5 mg PO HS PRN 08/07/21 03/08/23 History DULoxetine HCL [Cymbalta] 20 mg PO HS 03/02/23 03/08/23 History carBAMazepine [Carbatrol] 100 - 200 mg PO HS 03/02/23 03/08/23 History Allergies Allergy/AdvReac Type Severity Reaction Status Date / Time No Known Allergies Allergy Verified 03/08/23 10:01 Surgical - Exam Vital Signs Temp Pulse Resp BP Pulse Ox 97.6 F 70 18 155/78 97 03/08/23 09:58 03/08/23 09:58 03/08/23 09:58 03/08/23 09:58 03/08/23 09:58 Physical exam: General: Well-developed, well-nourished HEENT: Normocephalic, sclerae nonicteric Abdomen: Nontender, nondistended Extremities: No edema Neuro: Alert and oriented Assessment and Plan (1) Colon polyp Narrative/Plan: Will proceed with colonoscopy at this time. Current Visit: Yes Status: Acute Code(s): K63.5 - POLYP OF COLON SNOMED Code(s): 17010662
[2023-03-08] MEDS ORDERED: PROPOFOL 10 MG/ML 20 ML VIAL IV ONE (10:41)
--- NOTE | 2023-03-08 11:02 | P.PCN ---
Date of Procedure: 03/08/23 Procedure(s) Performed: PREOPERATIVE DIAGNOSIS: History of colon polyps POSTOPERATIVE DIAGNOSIS: Ascending colon polyp, diverticulosis, hemorrhoids PROCEDURE: Colonoscopy with snare polypectomy ANESTHESIA: MAC SURGEON: Sha Alejandro M.D. SPECIMENS: Ascending colon polyp ENDOSCOPIC PROCEDURE: The patient was placed on the endoscopy table in the left decubitus position. The Olympus colonoscope was inserted into the anus and passed under direct visualization to the base of the cecum. The appendiceal o rifice was visualized. From that point the scope was slowly withdrawn inspecting all surfaces carefully. There were no neoplastic inflammatory or polypoid lesions throughout the cecum. In the ascending colon a small polyp was seen and removed using the cold snare technique. The remainder of the ascending transverse descending sigmoid and rectum was free of any neoplastic or polypoid lesions. There did appear to be some scarring in the colon at around 40-45 cm possibly from previous colitis or inflammatory change. The patient had scattered diverticulosis. At the anus patient had prominent internal and external hemorrhoids. There was one small hemorrhoid that appeared to have subacute thrombosis changes. The patient was taken to the recovery room in stable condition per anesthesia guidelines. RECOMMENDATIONS: Await biopsy results. Repeat colonoscopy 3-5 years.
[2023-03-08 11:05] VITALS: RESP 16
[2023-03-08 11:22] VITALS: BP 116/76; PULSE 51
== END 2023-03-08 11:52 | disposition home or self-care (01) ==
LOC: ORWHC2ENDO 09:16
PROVIDERS: ATTEND Surgery
DX: Z12.11 Encounter for screening for malignant neoplasm of colon (principal); D12.2 Benign neoplasm of ascending colon; K57.30 Diverticulosis of large intestine without perforation or abscess without bleeding; K64.8 Other hemorrhoids; K64.4 Residual hemorrhoidal skin tags; E03.9 Hypothyroidism, unspecified; I10 Essential (primary) hypertension; Z86.010 Personal history of colon polyps; Z96.651 Presence of right artificial knee joint; Z98.890 Other specified postprocedural states; Z87.891 Personal history of nicotine dependence; Z79.899 Other long term (current) drug therapy
CPT/HCPCS: 88305; 45385; J2704